=== PATIENT | male | born 1945 | race Native Hawaiian/Other Pacific Islander ===

== ENCOUNTER 2016-12-01 11:26 | Outpatient (CLI) | payer OTHER, BC ==
[~2016-12-01 11:26] MED LIST: ASA LOW DOSE81 MG PO; BENA10TA3 PO; CEFD300C2 PO; COQ-10100 M1 PO; CYCL10TA35 PO; EZET10TA13 PO; FISH OIL1200 M1 OR; FLUTMIS2 INH; KETO10TA34 PO; LIPITOR80 MG PO; LOFIBRA160 MG PO; LORA10TA3 PO; LORTAB 10/5001 EACH PO; MEDROL DOSEPAK4 MG PO; MELOXICAM PO; METO50TA27 PO; MOMETASONE0.1 % EX; MULTIVITAMIN PO; NITROSTAT0.4 MG SL; OMEP40CA PO; OXYC5TAB53 PO; TERAZOSIN5 MG PO; VITAMIN E100 UNIT PO; [UNRECOGNIZED DRUG - OTHER] NAS; [UNRECOGNIZED DRUG - OTHER] OT; [UNRECOGNIZED DRUG - OTHER] PO
== END 2016-12-01 11:28 | disposition short-term general hospital (02) ==
LOC: AMB 11:26
DX: R10.31 Right lower quadrant pain (principal)
CPT/HCPCS: A0425; A0429

== ENCOUNTER 2017-01-01 08:14 | Outpatient (CLI) | payer OTHER, BC | END 2017-01-01 19:12 | disposition home or self-care (01) | LOC: LABW 08:14 | PROVIDERS: Nurse Practitioner Adult Health | DX: E78.2 Mixed hyperlipidemia (principal); Z79.899 Other long term (current) drug therapy; Z51.81 Encounter for therapeutic drug level monitoring | CPT/HCPCS: 36415; 80061; 80076 ==

== ENCOUNTER 2017-02-25 09:21 | Outpatient (CLI) | payer OTHER, BC ==
[2017-02-25 09:36] LABS: PLATELET COUNT 257 K/uL (142-355)
[2017-02-25 09:55] LABS: POTASSIUM 4.3 mmol/L (3.6-5.2)
== END 2017-02-25 10:30 | disposition home or self-care (01) ==
LOC: LABW 09:21
PROVIDERS: Specialist
DX: Z01.810 Encounter for preprocedural cardiovascular examination (principal)
CPT/HCPCS: 36415; 80053; 85027

== ENCOUNTER 2017-03-27 11:18 | Outpatient (CLI) | payer OTHER, BC | END 2017-03-27 12:30 | disposition home or self-care (01) | LOC: RAD 11:18 | DX: N20.0 Calculus of kidney (principal) ==

== ENCOUNTER 2017-06-24 07:37 | Outpatient (CLI) | payer OTHER, BC | END 2017-06-24 08:40 | disposition home or self-care (01) | LOC: LABW 07:37 | PROVIDERS: Nurse Practitioner Adult Health | DX: E78.2 Mixed hyperlipidemia (principal); Z79.899 Other long term (current) drug therapy; Z51.81 Encounter for therapeutic drug level monitoring | CPT/HCPCS: 36415; 80061; 80076 ==

== ENCOUNTER 2017-12-09 08:43 | Outpatient (CLI) | payer OTHER, BC | END 2017-12-09 19:18 | disposition home or self-care (01) | LOC: LABW 08:43 | PROVIDERS: Nurse Practitioner Adult Health | DX: E78.2 Mixed hyperlipidemia (principal); Z79.899 Other long term (current) drug therapy; Z51.81 Encounter for therapeutic drug level monitoring | CPT/HCPCS: 36415; 80061; 80076 ==

== ENCOUNTER 2018-03-13 08:10 | Outpatient (CLI) | payer OTHER, BC ==
[2018-03-13 08:30] LABS: PLATELET COUNT 232 K/uL (142-355)
[2018-03-13 09:33] LABS: POTASSIUM 3.9 mmol/L (3.6-5.2)
== END 2018-03-13 20:11 | disposition home or self-care (01) ==
LOC: LABW 08:10
PROVIDERS: Internal Medicine
DX: Z01.818 Encounter for other preprocedural examination (principal); E11.9 Type 2 diabetes mellitus without complications; I25.10 Atherosclerotic heart disease of native coronary artery without angina pectoris; J44.9 Chronic obstructive pulmonary disease, unspecified
CPT/HCPCS: 36415; 80053; 80061; 81000; 82043; 82570; 83036; 84443; 85027

== ENCOUNTER 2018-06-20 08:26 | Outpatient (CLI) | payer OTHER, BC ==
[2018-06-20 08:56] LABS: PLATELET COUNT 371 K/uL (142-355)
== END 2018-06-20 19:35 | disposition home or self-care (01) ==
LOC: LABW 08:26
PROVIDERS: Internal Medicine
DX: E11.9 Type 2 diabetes mellitus without complications (principal)
CPT/HCPCS: 80053; 80061; 81000; 83036; 84134; 84439; 84443; 85027

== ENCOUNTER 2018-12-08 10:17 | Emergency (ER) | payer OTHER, BC ==
[~2018-12-08] VITALS: Ht 175.3 cm; Wt 81.6 kg
[2018-12-08] MEDS ORDERED: MOBIC7.5 M1 PO (11:00)
[2018-12-08] MEDS ORDERED: BENAZEPRIL HCL5 MG PO (11:02)
[2018-12-08 11:46] LABS: PLATELET COUNT 227 K/uL (142-355)
[2018-12-08 11:50] LABS: POTASSIUM 3.7 mmol/L (3.6-5.2)
[2018-12-08 14:30] VITALS: BP 151/83; TEMP 98.5
== END 2018-12-08 14:13 | disposition home or self-care (01) ==
LOC: ED 10:17
PROVIDERS: Family Medicine
DX: J44.1 Chronic obstructive pulmonary disease with (acute) exacerbation (principal); R06.09 Other forms of dyspnea
CPT/HCPCS: 36415; 80053; 85027; 94664; 99283

== ENCOUNTER 2019-01-28 10:10 | Outpatient (CLI) | payer OTHER, BC ==
[~2019-01-28 10:10] MED LIST changes: +BENAZEPRIL HCL5 MG PO; +MOBIC7.5 M1 PO
== END 2019-01-28 20:11 | disposition home or self-care (01) ==
LOC: US 10:10
DX: R10.2 Pelvic and perineal pain (principal)

== ENCOUNTER 2019-04-15 15:36 | Outpatient (CLI) | payer OTHER, BC | END 2019-04-15 23:31 | disposition home or self-care (01) | LOC: RAD 15:36 | DX: E11.9 Type 2 diabetes mellitus without complications (principal) ==

== ENCOUNTER 2020-02-20 16:13 | Emergency (ER) | payer OTHER, BC ==
[~2020-02-20] VITALS: Ht 175.3 cm; Wt 81.6 kg
[2020-02-20 17:57] VITALS: BP 148/78; TEMP 98
== END 2020-02-20 18:00 | disposition home or self-care (01) ==
LOC: ED 16:13
DX: S81.851A Open bite, right lower leg, initial encounter (principal); W54.0XXA Bitten by dog, initial encounter; Y92.89 Other specified places as the place of occurrence of the external cause
CPT/HCPCS: 90471; 90715; 99282; 99283

== ENCOUNTER 2020-09-16 11:35 | Emergency (ER) | payer OTHER, BC ==
[~2020-09-16] VITALS: Ht 175.3 cm; Wt 87.5 kg
[2020-09-16 11:40] VITALS: TEMP 97.3
[2020-09-16 14:00] VITALS: BP 118/75
== END 2020-09-16 14:00 | disposition home or self-care (01) ==
LOC: ED 11:35
DX: S80.02XA Contusion of left knee, initial encounter (principal); S80.811A Abrasion, right lower leg, initial encounter; W17.89XA Other fall from one level to another, initial encounter; Y92.098 Other place in other non-institutional residence as the place of occurrence of the external cause
CPT/HCPCS: 99283

== ENCOUNTER 2020-09-29 12:41 | Emergency (ER) | payer OTHER, BC ==
[~2020-09-29] VITALS: Ht 175.3 cm; Wt 87.5 kg
[2020-09-29 13:15] VITALS: BP 132/51; TEMP 98
== END 2020-09-29 15:00 | disposition home or self-care (01) ==
LOC: ED 12:41
DX: N39.0 Urinary tract infection, site not specified (principal); R31.9 Hematuria, unspecified; N40.1 Benign prostatic hyperplasia with lower urinary tract symptoms
CPT/HCPCS: 81000; 87086; 87088; 99283

== ENCOUNTER 2020-10-04 10:38 | Outpatient (CLI) | payer OTHER, BC ==
[2020-10-04 11:18] LABS: PLATELET COUNT 286 K/uL (142-355)
[2020-10-04 13:09] LABS: POTASSIUM 4.4 mmol/L (3.6-5.2)
== END 2020-10-04 22:56 | disposition home or self-care (01) ==
LOC: LABW 10:38
PROVIDERS: ATTEND Internal Medicine
DX: E11.9 Type 2 diabetes mellitus without complications (principal)
CPT/HCPCS: 36415; 80053; 80061; 81000; 82043; 82570; 83036; 84439; 84443; 84550; 85027

== ENCOUNTER 2021-03-26 23:17 | Emergency (ER) | payer OTHER, BC ==
[2021-04-08 19:40] LABS: POTASSIUM 3.5 mmol/L (3.6-5.2)
[2021-04-08 19:42] LABS: PLATELET COUNT 228 K/uL (142-355)
== END 2021-03-27 05:43 | disposition home or self-care (01) ==
LOC: ED 23:17
PROVIDERS: Hospitalist
DX: N13.2 Hydronephrosis with renal and ureteral calculous obstruction (principal); Z87.442 Personal history of urinary calculi
CPT/HCPCS: 36415; 80053; 81000; 82150; 83690; 85027; 96360; 96365; 96366; 96375; 99284; J1170; J1885; J1956; J2405

== ENCOUNTER 2021-04-12 09:22 | Outpatient (CLI) | payer OTHER, BC | END 2021-04-12 22:11 | disposition home or self-care (01) | LOC: CT 09:22 | PROVIDERS: ATTEND Internal Medicine | DX: M54.5 Low back pain (principal) ==

== ENCOUNTER 2021-04-29 01:32 | Emergency (ER) | payer OTHER, BC ==
[~2021-04-29] VITALS: Ht 175.3 cm; Wt 87.5 kg
[2021-04-29 02:05] LABS: PLATELET COUNT 318 K/uL (142-355)
[2021-04-29 02:10] LABS: POTASSIUM 4.2 mmol/L (3.6-5.2)
[2021-04-29 07:30] VITALS: BP 189/91; TEMP 98.4
== END 2021-04-29 07:30 | disposition short-term general hospital (02) ==
LOC: ED 01:32
PROVIDERS: Family Medicine
DX: N13.2 Hydronephrosis with renal and ureteral calculous obstruction (principal)
CPT/HCPCS: 80053; 81000; 85027; 96360; 96374; 96375; 96376; 99285; J2175; J2405